=== PATIENT | female | born 1930 | race Hispanic/Latino ===

== ENCOUNTER 2019-05-04 11:14 | Inpatient (IN) | payer MEDICARE ==
--- NOTE | 2019-05-04 12:18 | Emergency Department Report ---
Blank Doc - Documentation Documentation: 89-year-old female that was sent by PCP for left leg pain and swelling. This initial assessment/diagnostic orders/clinical plan/treatment(s) is/are subject to change based on patient's health status, clinical progression and re- assessment by fellow clinical providers in the ED. Further treatment and workup at subsequent clinical providers discretion. Patient/guardians urged not to elope from the ED as their condition may be serious if not clinically assessed and managed. Initial orders include: 1- Patient sent to MAIN ED for further evaluation and treatment 2- labs 3- US doppler
[2019-05-04 14:04] LABS: Basophils # (Auto) 0.1 K/mm3 (0.0-0.1); Basophils % (Auto) 0.7 % (0.0-1.8); Eosinophils % (Auto) 0.5 % (0.0-4.3); Hemoglobin 13.6 gm/dl (10.1-14.3); Lymphocytes # (Auto) 1.1 K/mm3 (1.2-5.4); Lymphocytes % (Auto) 11.7 % (13.4-35.0); Mean Corpuscular HGB Conc 33 % (30-34); Mean Corpuscular Volume 94 fl (79-97); Monocytes # (Auto) 0.9 K/mm3 (0.0-0.8); Monocytes % (Auto) 9.5 % (0.0-7.3); Platelet Count 168 K/mm3 (140-440); Red Blood Count 4.35 M/mm3 (3.65-5.03); Red Cell Distribution Width 14.8 % (13.2-15.2)
--- NOTE | 2019-05-04 14:11 | Vascular Lab Report ---
DUPLEX DOPPLER LOWER EXTREMITY VEINS, left INDICATION: left leg pain and swelling. TECHNIQUE: Duplex doppler imaging was performed through the veins of the left lower extremity using venous compr ession and other maneuvers. COMPARISON: No relevant prior imaging study available. FINDINGS: Left Common femoral vein: Occlusive thrombus. Left Superficial femoral vein: Occlusive thrombus throughout all segments. Left Popliteal vein: Occlusive thrombus. Left Calf veins: Occlusive thrombus. Additional findings: There is also extensive thrombus throughout the great saphenous vein. IMPRESSION: 1. Positive for DVT in the left lower extremity as above. Findings were given to Caesar Ross nurse practitioner at 1344 by the raw sampler. Signer Name: Johnny Berg MD Signed: 05/04/2019 2:07 PM Workstation Name: [id number]
--- NOTE | 2019-05-04 14:26 | Emergency Department Report ---
HPI - General Chief Complaint: Extremity Problem,Nontraumatic Time Seen by Provider: 05/04/19 12:16 - HPI HPI: 89-year-old female presents to the emergency department with complaint of a one-week history of progressively worsening left lower extremity swelling. She will occasionally have some twinges of pain in the calf but otherwise she denies any current his comfort. She originally saw her PCP and tried some compression stockings and keeping it elevated but it continued to worsen. She was sent in by the PCP, Dr. Lobo Escobar, for further evaluation. She denies any chest pain. When asked if she has any shortness of breath she says "I always have some shortness of breath." History of hypertension. She denies any recent fall or injury, recent surgery or immobility, or any long car or plane ride or travel. She herself does not have any history of PE or DVT but apparently her father " from one (a PE) on the operating table. ED Past Medical Hx - Past Medical History Previous Medical History?: Yes Hx Hypertension: Yes (2002) Hx Heart Attack/AMI: No Hx Congestive Heart Failure: No Hx Diabetes: No Hx Deep Vein Thrombosis: No Hx Pulmonary Embolism: No Hx GERD: No Hx Liver Disease: No Hx Renal Disease: No Hx Sickle Cell Disease: No Hx Arthritis: No Hx Headaches / Migraines: No Hx Seizures: No Hx Kidney Stones: No Hx Asthma: No Hx COPD: (mild ) Hx Tuberculosis: No Hx Dementia: No Hx HIV: No - Surgical History Past Surgical History?: Yes Hx Coronary Stent: No Hx Open Heart Surgery: No Hx Pacemaker: No Hx Internal Defibrillator: No Hx Cholecystectomy: No Hx Appendectomy: Yes () Hx Breast Surgery: No Additional Surgical History: fistualectomy; hysterectomy - Social History Smoking Status: Never Smoker Substance Use Type: None - Medications Home Medications: Home Medications Medication Instructions Recorded Confirmed Last Taken Type Bimatoprost [Lumigan 0.01%] 1 drop OU QHS 06/16/13 10/06/15 06/23/14 History Losartan Potassium 100 mg PO DAILY 06/16/13 10/06/15 06/23/14 History Simvastatin 1 tab PO DAILY 06/16/13 10/06/15 06/22/14 History Timolol Maleate [Timolol Maleate 1 drop OU BID 06/16/13 10/06/15 06/23/14 History 0.25%] Polyethylene Glycol 3350 [Miralax 17 gm PO QDAY PRN #7 powd.pack 10/08/15 Unknown Rx 3350] Tiotropium [Spiriva] 1 puff IH Q24HRT #30 cap 10/08/15 Unknown Rx levoFLOXacin [Levaquin TAB] 500 mg PO Q24HR #7 tablet 10/08/15 Unknown Rx metroNIDAZOLE [Flagyl TAB] 500 mg PO Q8HR #21 tablet 10/08/15 Unknown Rx ED Review of Systems ROS: Stated complaint: LFT LEG SWELLING/PAIN Other details as noted in HPI Comment: All other systems reviewed and negative Constitutional: denies: chills, fever Eyes: denies: eye pain, vision change ENT: denies: ear pain, throat pain Respiratory: shortness of breath (chronic). denies: cough Cardiovascular: edema (LLE). denies: chest pain Gastrointestinal: denies: abdominal pain, vomiting Genitourinary: denies: dysuria, discharge Musculoskeletal: joint swelling, myalgia. denies: back pain Skin: denies: rash Neurological: denies: headache, weakness Physical Exam - Physical Exam Vital Signs: Vital Signs 05/04/19 05/04/19 11:18 14:03 Temperature 97.4 F L 97.7 F Pulse Rate 97 H 80 Respiratory 16 16 Rate Blood Pressure 131/68 Blood Pressure 140/58 [Right] O2 Sat by Pulse 98 97 Oximetry Physical Exam: GENERAL: The patient is well-developed well-nourished. HEENT: Normocephalic. Atraumatic. Patient has moist mucous membranes. EYES: Extraocular motions are intact. NECK: Supple. Trachea is midline. CHEST/LUNGS: Clear to auscultation. There is no respiratory distress noted. HEART/CARDIOVASCULAR: Regular. There is no tachycardia. There is no murmur. ABDOMEN: Abdomen is soft, nontender. Patient has normal bowel sounds. There is no abdominal distention. SKIN: There is 4+ pitting edema to the left lower extremity, as well as a purplish hue of the skin. NEURO: The patient is awake, alert, and oriented. The patient is cooperative. The patient has no focal neurologic deficits. Normal speech. MUSCULOSKELETAL: There is no tenderness or deformity. There is no limitation range of motion. Unable to palpate left dorsalis pedis pulse secondary to edema. Cap refill less than 2 seconds. ED Course Vital Signs 05/04/19 05/04/19 11:18 14:03 Temperature 97.4 F L 97.7 F Pulse Rate 97 H 80 Respiratory 16 16 Rate Blood Pressure 131/68 Blood Pressure 140/58 [Right] O2 Sat by Pulse 98 97 Oximetry ED Medical Decision Making - Lab Data Result diagrams: 05/04/19 12:48 05/04/19 12:48 - Radiology Data Radiology results: report reviewed DUPLEX DOPPLER LOWER EXTREMITY VEINS, left INDICATION: left leg pain and swelling. TECHNIQUE: Duplex doppler imaging was performed through the veins of the left lower extremity using venous compression and other maneuvers. COMPARISON: No relevant prior imaging study available. FINDINGS: Left Common femoral vein: Occlusive thrombus. Left Superficial femoral vein: Occlusive thrombus throughout all segments. Left Popliteal vein: Occlusive thrombus. Left Calf veins: Occlusive thrombus. Additional findings: There is also extensive thrombus throughout the great saphenous vein. IMPRESSION: 1. Positive for DVT in the left lower extremity as above. Findings were given to Caesar Ross nurse practitioner at 1344 by the solar sales energy advisor. V/Q Scan HISTORY: SOB, DVT. TECHNIQUE: Patient was given 5.3 mCi of technetium MAA and 16.5 mCi of xenon- 133. COMPARISON: None FINDINGS: No significant mismatch between ventilation and perfusion imaging. IMPRESSION: Low probability for PTE. - Medical Decision Making This patient presents with a one-week history of progressive worsening left lowe r extremity swelling as well as some intermittent discomfort. A left leg venous Doppler ultrasound came back positive for an extensive DVT. Patient says that she has some chronic shortness of breath so with the finding of the DVT the patient had a ventilation perfusion scan done that was low probability for a PE. Labs are mostly unremarkable except for some mild renal insufficiency. The patient was seen in the emergency department by the vascular surgeon on-call, Dr. Blackman. She will be placed on heparin but does not appear to be a candidate for any immediate thrombolysis or thrombectomy. Patient will be admitted to the hospital for further evaluation and was accepted for admission by the hospitalist, Dr. Viveros. - Differential Diagnosis DVT, PE, cellulitis, venous stasis, CHF Critical care time in (mins) excluding proc time.: 31 Critical care attestation.: If time is entered above; I have spent that time in minutes in the direct care of this critically ill patient, excluding procedure time. Critical care time was spent on this patient and doing her initial evaluation, multiple re- evaluations, ordering and interpretation of labs and imaging, discussion with the vascular surgeon and hospitalist, initiation of anticoagulation. Failure to evaluate and treat this patient's DVT could otherwise lead to increased blood clot, pulmonary embolism, increased swelling causing limb ischemia/necrosis, among other possibilities. Critical Care Time: 31 minutes ED Disposition Clinical Impression: Mild renal insufficiency Deep vein thrombosis of left lower extremity Qualifiers: Affected thrombotic vein of extremity: unspecified vein of extremity Chronicity: acute Qualified Code(s): I82.402 - Acute embolism and thrombosis of unspecified deep veins of left lower extremity Disposition: -09 OP ADMIT IP TO THIS HOSP Is pt being admited?: Yes Condition: Serious Time of Disposition: 19:50
[2019-05-04 14:28] LABS: Albumin 4.5 g/dL (3.9-5)
--- NOTE | 2019-05-04 15:02 | Consultation ---
History of Present Illness - Reason for Consult Consult date: 05/04/19 DVT - History of Present Illness 89-year-old female presents to the emergency department with complaint of a one-week history of progressively worsening left lower extremity swelling. She will occasionally have some twinges of pain in the calf but otherwise she denies any current his comfort. She originally saw her PCP and tried some compression stockings and keeping it elevated but it continued to worsen. She was sent in by the PCP, Dr. Lobo Escobar, for further evaluation. She denies any chest pain. When asked if she has any shortness of breath she says "I always have some shortness of breath." History of hypertension. She denies any recent fall or injury, recent surgery or immobility, or any long car or plane ride or travel. She herself does not have any history of PE or DVT but apparently her father " from one (a PE) on the operating table. ED Past Medical Hx - Past Medical History Previous Medical History?: Yes Hx Hypertension: Yes (2002) Hx Heart Attack/AMI: No Hx Congestive Heart Failure: No Hx Diabetes: No Hx Deep Vein Thrombosis: No Hx Pulmonary Embolism: No Hx GERD: No Hx Liver Disease: No Hx Renal Disease: No Hx Sickle Cell Disease: No Hx Arthritis: No Hx Headaches / Migraines: No Hx Seizures: No Hx Kidney Stones: No Hx Asthma: No Hx COPD: (mild ) Hx Tuberculosis: No Hx Dementia: No Hx HIV: No - Surgical History Past Surgical History?: Yes Hx Coronary Stent: No Hx Open Heart Surgery: No Hx Pacemaker: No Hx Internal Defibrillator: No Hx Cholecystectomy: No Hx Appendectomy: Yes () Hx Breast Surgery: No Additional Surgical History: fistualectomy; hysterectomy - Social History Smoking Status: Never Smoker Substance Use Type: None Medications and Allergies Allergies Allergy/AdvReac Type Severity Reaction Status Date / Time morphine AdvReac NAUSEA;HEAD Verified 06/18/13 07:35 ACHE;RASH Home Medications Medication Instructions Recorded Confirmed Last Taken Type Bimatoprost [Lumigan 0.01%] 1 drop OU QHS 06/16/13 10/06/15 06/23/14 History Losartan Potassium 100 mg PO DAILY 06/16/13 10/06/15 06/23/14 History Simvastatin 1 tab PO DAILY 06/16/13 10/06/15 06/22/14 History Timolol Maleate [Timolol Maleate 1 drop OU BID 06/16/13 10/06/15 06/23/14 History 0.25%] Polyethylene Glycol 3350 [Miralax 17 gm PO QDAY PRN #7 powd.pack 10/08/15 Unknown Rx 3350] Tiotropium [Spiriva] 1 puff IH Q24HRT #30 cap 10/08/15 Unknown Rx levoFLOXacin [Levaquin TAB] 500 mg PO Q24HR #7 tablet 10/08/15 Unknown Rx metroNIDAZOLE [Flagyl TAB] 500 mg PO Q8HR #21 tablet 10/08/15 Unknown Rx Review of Systems All systems: negative (see HPI) Exam - Constitutional Vitals: Temp Pulse Resp BP Pulse Ox 97.7 F 80 16 140/58 97 05/04/19 14:03 05/04/19 14:03 05/04/19 14:03 05/04/19 14:03 05/04/19 14:03 General appearance: Present: no acute distress - EENT Eyes: Present: EOM intact ENT: hearing intact - Respiratory Respiratory effort: normal - Extremities Extremities: abnormal (right lower extremity palpable pedal pulses, left lower extremity nonpalpable pedal pulses, 4+ edema, reddish venous rubor, but no pain, and full motor and sensory function) - Abdominal General gastrointestinal: Present: soft, non-tender - Psychiatric Psychiatric: appropriate mood/affect, cooperative Results - Labs CBC & Chem 7: 05/04/19 12:48 05/04/19 12:48 Labs: Abnormal lab results 05/04/19 05/04/19 Range/Units 12:48 12:48 Lymph % (Auto) 11.7 L (13.4-35.0) % [place] % (Auto) 9.5 H (0.0-7.3) % Lymph # 1.1 L (1.2-5.4) K/mm3 [place] # 0.9 H (0.0-0.8) K/mm3 Seg Neutrophils % 77.6 H (40.0-70.0) % Potassium 5.4 H (3.6-5.0) mmol/L BUN 18 H (7-17) mg/dL - Imaging and Cardiology Venous US: report reviewed, image reviewed Assessment and Plan 89-year-old female who presents with 2 week history of left lower extremity swelling. She initially saw her primary care physician who had an ultrasound performed but this was negative. She then tried to elevate the leg and wear compression hose but this did not improve her symptoms. She presented after the swelling had worsened and had a DVT study which demonstrated extensive left lower extremity deep and superficial venous thrombus. Although the patient has 4+ swelling with reddish discoloration, she has full motor and sensory function of the left lower extremity without pain. She had an event 2 months ago which may represent a possible stroke and since then she has had some word finding difficulties. Although typically such extensive thrombus would be addressed with thrombolytic therapy and subsequent mechanical thrombectomy, given patient's advanced age (89) and history of possible CVA 2 months ago, she is a poor thrombolysis candidate. She has full motor, and sensory function of the left lower extremity. Her right pedal pulses are palpable, but her left pedal pulses are nonpalpable but this may be due to the swelling. The patient has some concerning signs of phlegmasia with 4+ edema and reddish discoloration of the limb with nonpalpable pulses, but is quite elderly, and has full motor and sensory function. Recommend heparin anticoagulation and will reassess patient tomorrow. NPO after MN except sips of water with meds until time of reassessment.
[2019-05-04] MEDS ORDERED: HEPARIN 10,000 UNITS/10 ML VIAL IV ONE (15:24)
--- NOTE | 2019-05-04 15:54 | Nuclear Medicine Report ---
V/Q Scan HISTORY: SOB, DVT. TECHNIQUE: Patient was given 5.3 mCi of technetium MAA and 16.5 mCi of xenon-133. COMPARISON: None FINDINGS: No significant mismatch between ventilation and perfusion imaging. IMPRESSION: Low probability for PTE. Signer Name: Johnny Berg MD Signed: 05/04/2019 3:49 PM Workstation Name: [id number]
--- NOTE | 2019-05-04 15:57 | History and Physical Report ---
History of Present Illness Chief complaint: My leg hurts History of present illness: 89-year-old female with HTN presents to ED for evaluation. Patient states that she has experienced left lower extremity pain over the past 1 week with persistent symptoms over this at the same timeframe. Patient states that she has twinges of pain in her left calf which have been persistent over the past week. Patient was seen and evaluated by her primary care physician and instructed to seek further care at [facility]. Patient transported to [facility] via private vehicle. Patient seen and evaluated in the emergency department. Patient underwent left lower extremity duplex and found to have extensive DVT in the left lower extremity. Patient placed in observation status and admitted to [facility] unit for medical stabilization due to increased risk of decompensation.. Interventional radiology consulted. Patient initiated on heparin drip. Patient denies fever, chills, chest pain, palpitations, hemoptysis, bright red blood per rectum, prolonged travel/immobility, individual/family of DVT/PE/bleeding/blood clotting disorders, skin rash, recent ill contacts. No prior admission for review. All medication listed at time of admission have been reconciled. Advanced care planning conducted in ED. Past History Past Medical History: hypertension Past Surgical History: appendectomy, hysterectomy Social history: . denies: smoking, alcohol abuse, prescription drug abuse Family history: hypertension Medications and Allergies Allergies Allergy/AdvReac Type Severity Reaction Status Date / Time morphine AdvReac NAUSEA;HEAD Verified 06/18/13 07:35 ACHE;RASH Home Medications Medication Instructions Recorded Confirmed Last Taken Type Bimatoprost [Lumigan 0.01%] 1 drop OU QHS 06/16/13 10/06/15 06/23/14 History Losartan Potassium 100 mg PO DAILY 06/16/13 10/06/15 06/23/14 History Simvastatin 1 tab PO DAILY 06/16/13 10/06/15 06/22/14 History Timolol Maleate [Timolol Maleate 1 drop OU BID 06/16/13 10/06/15 06/23/14 History 0.25%] Polyethylene Glycol 3350 [Miralax 17 gm PO QDAY PRN #7 powd.pack 10/08/15 Unknown Rx 3350] Tiotropium [Spiriva] 1 puff IH Q24HRT #30 cap 10/08/15 Unknown Rx levoFLOXacin [Levaquin TAB] 500 mg PO Q24HR #7 tablet 10/08/15 Unknown Rx metroNIDAZOLE [Flagyl TAB] 500 mg PO Q8HR #21 tablet 10/08/15 Unknown Rx Active Meds: Active Medications Heparin Sodium/Sodium Chloride (Heparin/ 0.45% Nacl-25,000 Unit/500 Ml) 25,000 unit in 500 mls @ 20 mls/hr IV TITR ELIZ; Protocol Review of Systems Constitutional: other (Left left calf pain), no weight loss, no weight gain, no fever, no sweats Ears, nose, mouth and throat: no ear pain, no ear discharge, no tinnitis, no n ose pain, no nasal congestion, no nasal discharge Breasts: no change in shape, no swelling, no mass Cardiovascular: no chest pain, no orthopnea, no rapid/irregular heart beat, no edema, no syncope Respiratory: no cough, no excessive sputum, no hemoptysis, no shortness of breath Gastrointestinal: no nausea, no vomiting, no diarrhea, no constipation Genitourinary Female: no pelvic pain, no flank pain, no menorrhagia, no dysuria, no urinary frequency, no urgency Rectal: no pain, no incontinence, no bleeding Musculoskeletal: no neck stiffness, no neck pain, no shooting arm pain, no arm numbness/tingling, no shooting leg pain, no redness of joints Integumentary: no rash, no pruritis, no redness, no wounds, no jaundice, no boils, no blisters Neurological: no transient paralysis, no paralysis, no weakness, no parathesias, no numbness, no tingling, no seizures Psychiatric: no anxiety, no memory loss, no change in sleep habits, no sleep disturbances, no insomnia, no hypersomnia Endocrine: no cold intolerance, no heat intolerance, no polyphagia, no excessive thirst, no polydipsia, no nocturia, no excessive sweating, no flushing Hematologic/Lymphatic: no easy bruising, no easy bleeding, no lymphadenopathy, no lymphedema Allergic/Immunologic: no urticaria, no allergic rhinitis, no wheezing, no persistent infections, no anaphylaxis Exam - Constitutional Vitals: Temp Pulse Resp BP Pulse Ox 97.7 F 80 16 140/58 97 05/04/19 14:03 05/04/19 14:03 05/04/19 14:03 05/04/19 14:03 05/04/19 14:03 General appearance: Present: mild distress - EENT Eyes: Present: PERRL ENT: hearing intact, clear oral mucosa - Neck Neck: Present: supple, normal ROM - Respiratory Respiratory effort: normal Respiratory: bilateral: CTA - Cardiovascular Heart Sounds: Present: S1 & S2. Absent: rub, click - Extremities Extremities: pulses symmetrical Extremity abnormal: edema, erythema Peripheral Pulses: within normal limits - Abdominal General gastrointestinal: Present: soft, non-tender, non-distended, normal bowel sounds Female genitourinary: Present: normal - Integumentary Integumentary: Present: clear, warm, dry - Musculoskeletal Musculoskeletal: gait normal, strength equal bilaterally - Psychiatric Psychiatric: appropriate mood/affect, intact judgment & insight - Neurologic Neurologic: CNII-XII intact, moves all extremities Results - Labs CBC & Chem 7: 05/04/19 12:48 05/04/19 12:48 Labs: Abnormal lab results 05/04/19 05/04/19 Range/Units 12:48 12:48 Lymph % (Auto) 11.7 L (13.4-35.0) % [place] % (Auto) 9.5 H (0.0-7.3) % Lymph # 1.1 L (1.2-5.4) K/mm3 [place] # 0.9 H (0.0-0.8) K/mm3 Seg Neutrophils % 77.6 H (40.0-70.0) % Potassium 5.4 H (3.6-5.0) mmol/L BUN 18 H (7-17) mg/dL Assessment and Plan - Patient Problems (1) Deep vein thrombosis of left lower extremity Current Visit: Yes Status: Acute Qualifiers: Affected thrombotic vein of extremity: unspecified vein of extremity Chronicity: acute Qualified Code(s): I82.402 - Acute embolism and thrombosis of unspecified deep veins of left lower extremity Plan to address problem: Interventional radiology consulted, therapeutic anticoagulation, supportive care, left lower extremity elevation while in bed (2) Hypertension Current Visit: Yes Status: Acute Qualifiers: Hypertension type: essential hypertension Qualified Code(s): I10 - Essential (primary) hypertension Plan to address problem: Monitor blood pressure every shift, continue medical management. (3) Advance care planning Current Visit: Yes Status: Acute Plan to address problem: Disease education conducted, patient is full code, patient knowledge understanding and agreement with care plan. +30 minutes (4) DVT prophylaxis Current Visit: Yes Status: Acute Plan to address problem: SCD to bilateral lower extremities while in bed, therapeutic anticoagulation.
[2019-05-04] MEDS ORDERED: HEPARIN/ 0.45% NACL DRIP 25,000 UNIT/500 ML BAG IV SCH (16:00)
[2019-05-04] MEDS ORDERED: ONDANSETRON 4 MG/2 ML INJ IV PRN (16:03)
[2019-05-04] MEDS ORDERED: ACETAMINOPHEN 325 MG TAB PO PRN (16:03)
[2019-05-04] MEDS ORDERED: HYDROmorphone 1 MG/1 ML INJ IV PRN (16:03)
[2019-05-04] MEDS ORDERED: ALBUTEROL 2.5 MG/3 ML NEBU IH PRN (16:03)
[2019-05-04] MEDS ORDERED: POLYETHYLENE GLYCOL 3350 17 GM POWDER PO PRN (16:05)
[2019-05-04 16:09] LABS: INR 0.9 (0.87-1.13)
[2019-05-04 16:10] LABS: Partial Thromboplastin Time 34.9 Sec. (24.2-36.6)
[2019-05-04] MEDS: PRAVASTATIN 80 MG TAB PO SCH (21:59)
[2019-05-04] MEDS ORDERED: TIMOLOL MALEATE OU SCH (22:00)
[2019-05-04] MEDS ORDERED: NON-FORMULARY EACH (Bimatoprost [Lumigan 0.01%] 1 DROP) OU SCH (22:00)
[2019-05-04] MEDS: LATANOPROST 0.005% OPHTH SOLN 2.5 ML OU SCH (22:18)
[2019-05-04 23:08] LABS: Bilirubin,Urine NEG (Negative); Blood,Urine NEG (Negative); Color,Urine Amber (Yellow); Hyaline Casts,Urine 1 /LPF; Mucus,Urine 2+ /HPF; Protein,Urine <15 mg/dL mg/dL (Negative); Urobilinogen,Urine < 2.0 mg/dL (<2.0)
[2019-05-05 06:17] LABS: Basophils # (Auto) 0.1 K/mm3 (0.0-0.1); Eosinophils # (Auto) 0.1 K/mm3 (0.0-0.4); Eosinophils % (Auto) 1.7 % (0.0-4.3); Hematocrit 35.9 % (30.3-42.9); Lymphocytes # (Auto) 1.4 K/mm3 (1.2-5.4); Lymphocytes % (Auto) 21.8 % (13.4-35.0); Mean Corpuscular HGB Conc 33 % (30-34); Mean Corpuscular Volume 94 fl (79-97); Monocytes # (Auto) 0.9 K/mm3 (0.0-0.8); Monocytes % (Auto) 13.6 % (0.0-7.3); Platelet Count 144 K/mm3 (140-440); Red Blood Count 3.82 M/mm3 (3.65-5.03); Red Cell Distribution Width 14.4 % (13.2-15.2)
[2019-05-05 09:05] LABS: Calcium 8.8 mg/dL (8.4-10.2)
[2019-05-05] MEDS: TIOTROPIUM 18 MCG CAP INHALATION IH SCH (09:15)
[2019-05-05] MEDS ORDERED: NON-FORMULARY EACH (Losartan Potassium [Losartan Potassium] 100 MG) PO SCH (10:00)
[2019-05-05] MEDS ORDERED: SIMVASTATIN PO SCH (10:00)
[2019-05-05] MEDS: LOSARTAN 50 MG TAB PO SCH (10:26)
[2019-05-05] MEDS ORDERED: ENOXAPARIN 100 MG/1 ML INJ SUB-Q SCH (13:00)
--- NOTE | 2019-05-05 13:15 | Progress Note ---
Assessment and Plan 89-year-old female with extensive left lower extremity DVT for 2 weeks. She had an event 2 months ago which may represent a possible stroke and since then she has had some word finding difficulties. 4+ left lower extremity swelling with rubor discoloration. No pain. Full motor and sensory function. Due to advanced age, will attempt to manage with medical management. Switching to Lovenox. Will reassess over the next few days. If there is no decline, then will continue medical management. If decline, Clottriever thrombectomy. Subjective Date of service: 05/05/19 Interval history: Swollen, 4+ edema. Palpable right pedal pulses, nonpalpable pedal pulses. No pain. Left lower extremity painless rubor was noted. Full motor function and sensory function. Objective - Constitutional Vitals: Vital Signs - 12hr 05/05/19 05/05/19 05/05/19 02:20 02:41 03:07 Temperature 98.3 F Pulse Rate 78 Respiratory 18 20 Rate Blood Pressure 94/46 O2 Sat by Pulse 94 Oximetry 05/05/19 05/05/19 05/05/19 07:27 07:55 10:00 Temperature 98.6 F Pulse Rate 92 H Respiratory 18 20 Rate Blood Pressure 107/50 O2 Sat by Pulse 92 94 Oximetry 05/05/19 10:26 Temperature Pulse Rate 92 H Respiratory Rate Blood Pressure 107/50 O2 Sat by Pulse Oximetry General appearance: Present: no acute distress - EENT Eyes: EOM intact ENT: hearing intact - Respiratory Respiratory effort: normal Extremities: abnormal (see subjective) - Gastrointestinal General gastrointestinal: Present: soft, non-tender - Psychiatric Psychiatric: appropriate mood/affect, cooperative - Labs CBC & Chem 7: 05/05/19 05:52 05/05/19 08:32 Labs: Abnormal lab results 05/04/19 05/04/19 05/04/19 Range/Units 12:48 12:48 22:19 Lymph % (Auto) 11.7 L (13.4-35.0) % [place] % (Auto) 9.5 H (0.0-7.3) % Lymph # 1.1 L (1.2-5.4) K/mm3 [place] # 0.9 H (0.0-0.8) K/mm3 Seg Neutrophils % 77.6 H (40.0-70.0) % Heparin Anti-Xa Level (0.3-0.7) U.I./ml Potassium 5.4 H (3.6-5.0) mmol/L Carbon Dioxide (22-30) mmol/L BUN 18 H (7-17) mg/dL Urine WBC (Auto) 7.0 H (0.0-6.0) /HPF 05/04/19 05/05/19 05/05/19 Range/Units 22:49 05:52 08:32 Lymph % (Auto) (13.4-35.0) % [place] % (Auto) 13.6 H (0.0-7.3) % Lymph # (1.2-5.4) K/mm3 [place] # 0.9 H (0.0-0.8) K/mm3 Seg Neutrophils % (40.0-70.0) % Heparin Anti-Xa Level 0.86 H (0.3-0.7) U.I./ml Potassium (3.6-5.0) mmol/L Carbon Dioxide 21 L (22-30) mmol/L BUN 20 H (7-17) mg/dL Urine WBC (Auto) (0.0-6.0) /HPF Medications & Allergies - Medications Allergies/Adverse Reactions: Allergies morphine Adverse Reaction (Verified 06/18/13 07:35) NAUSEA;HEADACHE;RASH Home Medications: Home Medications Medication Instructions Recorded Confirmed Last Taken Type Bimatoprost [Lumigan 0.01%] 1 drop OU QHS 06/16/13 05/05/19 06/23/14 History Losartan Potassium 100 mg PO DAILY 06/16/13 05/05/19 06/23/14 History Simvastatin 1 tab PO DAILY 06/16/13 05/05/19 06/22/14 History Timolol Maleate [Timolol Maleate 1 drop OU BID 06/16/13 05/05/19 06/23/14 History 0.25%] Polyethylene Glycol 3350 [Miralax 17 gm PO QDAY PRN #7 powd.pack 10/08/15 05/05/19 Unknown Rx 3350] Tiotropium [Spiriva] 1 puff IH Q24HRT #30 cap 10/08/15 05/05/19 Unknown Rx levoFLOXacin [Levaquin TAB] 500 mg PO Q24HR #7 tablet 10/08/15 05/05/19 Unknown Rx metroNIDAZOLE [Flagyl TAB] 500 mg PO Q8HR #21 tablet 10/08/15 05/05/19 Unknown Rx Mirtazapine 15 mg PO Q48HR 05/05/19 05/05/19 Unknown History Active Medications: Generic Name Dose Route Start Last Admin Trade Name Freq PRN Reason Stop Dose Admin Acetaminophen 650 mg 05/04/19 16:03 Tylenol PO Q4H PRN Pain MILD(1-3)/Fever >100.5/EWI Albuterol 2.5 mg 05/04/19 16:03 Proventil IH Q4HRT PRN Shortness Of Breath Enoxaparin Sodium 70 mg 05/05/19 13:00 Enoxaparin SUB-Q Q12HR [facility] Hydromorphone HCl 0.25 mg 05/04/19 16:03 Dilaudid IV Q3H PRN Pain, Moderate (4-6) Latanoprost 1 drops 05/04/19 22:00 05/04/19 22:18 Latanoprost 0.005% OU Not Given QHS [facility] Losartan Potassium 100 mg 05/05/19 10:00 05/05/19 10:26 Cozaar PO Not Given QDAY [facility] Miscellaneous Medication 1 drop 05/04/19 22:00 Timolol Maleate [Timolol Maleate 0.25%] OU BID [facility] Ondansetron HCl 4 mg 05/04/19 16:03 Zofran IV Q8H PRN Nausea And Vomiting Polyethylene Glycol 17 gm 05/04/19 16:05 Miralax 3350 PO QDAY PRN Constipation Pravastatin Sodium 80 mg 05/04/19 22:00 05/04/19 21:59 Pravachol PO 80 mg QHS [facility] Administration Sodium Chloride 10 ml 05/04/19 22:00 05/05/19 10:28 Sodium Chloride Flush Syringe 10 Ml IV 10 ml BID ELIZ Administration Sodium Chloride 10 ml 05/04/19 16:03 Sodium Chloride Flush Syringe 10 Ml IV PRN PRN LINE FLUSH Tiotropium [place] 1 puff 05/05/19 09:00 Spiriva IH Q24HRT ELIZ
[2019-05-05] MEDS: ENOXAPARIN 80 MG/0.8 ML INJ SUB-Q SCH ×2 (15:46→22:44)
--- NOTE | 2019-05-05 20:34 | Progress Note ---
Assessment and Plan Assessment and plan: Patient is a 89-year-old [place] woman with a history of hypertension who presents to [facility] with left leg swollen and pain. Patient underwent left lower extremity duplex and found to have extensive DVT in the left lower extremity. Patient initiated on heparin drip and Vascular/IR physician wanted to initiate anticoagulation inpatient due to the extensive nature of the DVT, in multiple large veins and possibly needing Clottriever thrombectomy. Patient denies cancer, and states she is up to date with screen, she denies prolonged travel/immobility. There is no individual/family of DVT/PE/bleeding/blood clotting disorders. * Left leg DVT FINDINGS: Left Common femoral vein: Occlusive thrombus. Left Superficial femoral vein: Occlusive thrombus throughout all segments. Left Popliteal vein: Occlusive thrombus. Left Calf veins: Occlusive thrombus. Additional findings: There is also extensive thrombus throughout the great saphenous vein. IMPRESSION: 1. Positive for DVT in the left lower extremity as above. Findings were given to Caesar Ross nurse practitioner at 1344 by the pier runner. * V/Q scan IMPRESSION: Low probability for PTE. Acute LLE DVT: treat with sq lovenox and plan to discharge on Eliquis Hypertension: low salt diet DVT ppx: therapeutic Lovenox History Interval history: Patient was seen and examined. Follow-up on current diagnosis of Left leg DVT. Overnight uneventful as no events directly reported to me. Patient denies any c hest pain, shortness breath, nausea/vomiting or severe headaches. Imaging, nursing note, chart, labs and old chart reviewed. Discussed with patient. Daughter Melany at bedside Hospitalist Physical - Physical exam Narrative exam: Gen: WDWN, NAD, Awake, Alert, Orientated HEENT: NCAT, EOMI, PERRL, OP Clear Neck: supple, no adenopathy, no thyromegaly, no JVD CVS/Heart: RRR, normal S1S2, pulses present bilaterally Chest/Lungs: CTA B, Symmetrical chest expansion, good air entry bilaterally GI/Abdomen: soft, NTND, good bowel sounds, no guarding or rebound /Bladder: no suprapubic tenderness, no CVA or paraspinal tenderness Extermity/Skin: 4+ left leg edema from foot to groin, no obvious rash MSK: FROM x 4 Neuro: CN 2-12 grossly intact, no new focal deficits Psych: calm - Constitutional Vitals: Temp Pulse Resp BP Pulse Ox 98.9 F 87 18 121/52 91 05/05/19 15:11 05/05/19 15:11 05/05/19 15:11 05/05/19 15:11 05/05/19 15:11 General appearance: Present: no acute distress Results - Labs CBC & Chem 7: 05/06/19 05:33 05/05/19 08:32 Labs: Laboratory Last Values WBC 6.3 K/mm3 (4.5-11.0) 05/05/19 05:52 RBC 3.82 M/mm3 (3.65-5.03) 05/05/19 05:52 Hgb 12.0 gm/dl (10.1-14.3) 05/05/19 05:52 Hct 35.9 % (30.3-42.9) 05/05/19 05:52 MCV 94 fl (79-97) 05/05/19 05:52 MCH 31 pg (28-32) 05/05/19 05:52 MCHC 33 % (30-34) 05/05/19 05:52 RDW 14.4 % (13.2-15.2) 05/05/19 05:52 Plt Count 144 K/mm3 (140-440) 05/05/19 05:52 Lymph % (Auto) 21.8 % (13.4-35.0) 05/05/19 05:52 [place] % (Auto) 13.6 % (0.0-7.3) H 05/05/19 05:52 Eos % (Auto) 1.7 % (0.0-4.3) 05/05/19 05:52 Baso % (Auto) 1.0 % (0.0-1.8) 05/05/19 05:52 Lymph # 1.4 K/mm3 (1.2-5.4) 05/05/19 05:52 [place] # 0.9 K/mm3 (0.0-0.8) H 05/05/19 05:52 Eos # 0.1 K/mm3 (0.0-0.4) 05/05/19 05:52 Baso # 0.1 K/mm3 (0.0-0.1) 05/05/19 05:52 Seg Neutrophils % 61.9 % (40.0-70.0) 05/05/19 05:52 Seg Neutrophils # 3.9 K/mm3 (1.8-7.7) 05/05/19 05:52 PT 12.2 Sec. (12.2-14.9) 05/04/19 15:38 INR 0.90 (0.87-1.13) 05/04/19 15:38 APTT 34.9 Sec. (24.2-36.6) 05/04/19 15:38 Heparin Anti-Xa Level 0.64 U.I./ml (0.3-0.7) 05/05/19 12:13 Sodium 141 mmol/L (137-145) 05/05/19 08:32 Potassium 4.2 mmol/L (3.6-5.0) D 05/05/19 08:32 Chloride 105.0 mmol/L (98-107) 05/05/19 08:32 Carbon Dioxide 21 mmol/L (22-30) L 05/05/19 08:32 Anion Gap 19 mmol/L 05/05/19 08:32 BUN 20 mg/dL (7-17) H 05/05/19 08:32 Creatinine 0.9 mg/dL (0.7-1.2) 05/05/19 08:32 Estimated GFR 59 ml/min 05/05/19 08:32 BUN/Creatinine Ratio 22 % 05/05/19 08:32 Glucose 98 mg/dL (65-100) 05/05/19 08:32 Calcium 8.8 mg/dL (8.4-10.2) 05/05/19 08:32 Total Bilirubin 0.60 mg/dL (0.1-1.2) 05/04/19 12:48 AST 21 units/L (5-40) 05/04/19 12:48 ALT 16 units/L (7-56) 05/04/19 12:48 Alkaline Phosphatase 123 units/L (35-129) 05/04/19 12:48 NT-Pro-B Natriuret Pep 276.5 pg/mL (0-900) 05/04/19 12:48 Total Protein 7.1 g/dL (6.3-8.2) 05/04/19 12:48 Albumin 4.5 g/dL (3.9-5) 05/04/19 12:48 Albumin/Globulin Ratio 1.7 % 05/04/19 12:48 Urine Color [place] (Yellow) 05/04/19 22:19 Urine Turbidity Slightly-cloudy (Clear) 05/04/19 22:19 Urine pH 5.0 (5.0-7.0) 05/04/19 22:19 Ur Specific [place] 1.021 (1.003-1.030) 05/04/19 22:19 Urine Protein <15 mg/dl mg/dL (Negative) 05/04/19 22:19 Urine Glucose (UA) Neg mg/dL (Negative) 05/04/19 22:19 Urine Ketones Tr mg/dL (Negative) 05/04/19 22:19 Urine Blood Neg (Negative) 05/04/19 22:19 Urine Nitrite Neg (Negative) 05/04/19 22:19 Urine Bilirubin Neg (Negative) 05/04/19 22:19 Urine Urobilinogen < 2.0 mg/dL (<2.0) 05/04/19 22:19 Ur Leukocyte Esterase Sm (Negative) 05/04/19 22:19 Urine WBC (Auto) 7.0 /HPF (0.0-6.0) H 05/04/19 22:19 Urine RBC (Auto) 7.0 /HPF (0.0-6.0) 05/04/19 22:19 U Epithel Cells (Auto) 6.0 /HPF (0-13.0) 05/04/19 22:19 Hyaline Casts 1 /LPF 05/04/19 22:19 Urine Mucus 2+ /HPF 05/04/19 22:19 Active Medications - Current Medications Current Medications: Generic Name Dose Route Start Last Admin Trade Name Freq PRN Reason Stop Dose Admin Acetaminophen 650 mg 05/04/19 16:03 Tylenol PO Q4H PRN Pain MILD(1-3)/Fever >100.5/WEI Albuterol 2.5 mg 05/04/19 16:03 Proventil IH Q4HRT PRN Shortness Of Breath Enoxaparin Sodium 70 mg 05/05/19 13:00 05/05/19 15:46 Enoxaparin SUB-Q 70 mg Q12HR [facility]IZ Administration Hydromorphone HCl 0.25 mg 05/04/19 16:03 Dilaudid IV Q3H PRN Pain, Moderate (4-6) Latanoprost 1 drops 05/04/19 22:00 05/04/19 22:18 Latanoprost 0.005% OU Not Given QHS [facility] Losartan Potassium 100 mg 05/05/19 10:00 05/05/19 10:26 Cozaar PO Not Given QDAY ELIZ Ondansetron HCl 4 mg 05/04/19 16:03 Zofran IV Q8H PRN Nausea And Vomiting Polyethylene Glycol 17 gm 05/04/19 16:05 Miralax 3350 PO QDAY PRN Constipation Pravastatin Sodium 80 mg 05/04/19 22:00 05/04/19 21:59 Pravachol PO 80 mg QHS ELIZ Administration Sodium Chloride 10 ml 05/04/19 22:00 05/05/19 10:28 Sodium Chloride Flush Syringe 10 Ml IV 10 ml BID ELIZ Administration Sodium Chloride 10 ml 05/04/19 16:03 Sodium Chloride Flush Syringe 10 Ml IV PRN PRN LINE FLUSH Timolol Maleate 1 drops 05/05/19 22:00 Timoptic OU BID [facility] Tiotropium [place] 1 puff 05/05/19 09:00 05/05/19 09:15 Spiriva IH Not Given Q24HRT ELIZ
[2019-05-05] MEDS: PRAVASTATIN 80 MG TAB PO SCH (22:43)
[2019-05-05] MEDS: TIMOLOL 0.5% OPHTH SOLN 5 ML OU SCH (22:43)
[2019-05-05] MEDS: LATANOPROST 0.005% OPHTH SOLN 2.5 ML OU SCH (22:44)
[2019-05-06 06:25] LABS: Hematocrit 34.5 % (30.3-42.9); Hemoglobin 11.6 gm/dl (10.1-14.3)
[2019-05-06] MEDS: TIMOLOL 0.5% OPHTH SOLN 5 ML OU SCH ×2 (09:15→21:23)
[2019-05-06] MEDS: ENOXAPARIN 80 MG/0.8 ML INJ SUB-Q SCH ×2 (09:15→21:23)
[2019-05-06] MEDS: LOSARTAN 50 MG TAB PO SCH (10:00)
[2019-05-06] MEDS: TIOTROPIUM 18 MCG CAP INHALATION IH SCH (11:07)
[2019-05-06] MEDS: PRAVASTATIN 80 MG TAB PO SCH (21:24)
[2019-05-06] MEDS: LATANOPROST 0.005% OPHTH SOLN 2.5 ML OU SCH (21:45)
[2019-05-07] MEDS: TIOTROPIUM 18 MCG CAP INHALATION IH SCH (08:13)
--- NOTE | 2019-05-07 08:29 | Progress Note ---
Assessment and Plan Assessment and plan: Patient is a 89-year-old [place] woman with a history of hypertension who presents to [facility] ED with left leg swollen and pain. Patient underwent left lower extremity duplex and found to have extensive DVT in the left lower extremity. Patient initiated on heparin drip and Vascular/IR physician wanted to initiate anticoagulation inpatient due to the extensive nature of the DVT, in multiple large veins and possibly needing Clottriever thrombectomy. Patient denies cancer, and states she is up to date with screen, she denies prolonged travel/immobility. There is no individual/family of DVT/PE/bleeding/blood clotting disorders. * Left leg DVT FINDINGS: Left Common femoral vein: Occlusive thrombus. Left Superficial femoral vein: Occlusive thrombus throughout all segments. Left Popliteal vein: Occlusive thrombus. Left Calf veins: Occlusive thrombus. Additional findings: There is also extensive thrombus throughout the great saphenous vein. IMPRESSION: 1. Positive for DVT in the left lower extremity as above. Findings were given to Caesar Ross nurse practitioner at 1344 by the sales and marketing director. * V/Q scan IMPRESSION: Low probability for PTE. Acute LLE DVT: treat with sq lovenox and plan to discharge on Eliquis Hypertension: low salt diet DVT ppx: therapeutic Lovenox Disposition: continue inpatient care still with significant symptoms and leg swelling, physical therapy to check function then d/c tomorrow on Eliquis if no necrosis seen History Interval history: Patient was seen and examined. Follow-up on current diagnosis of Left leg DVT. Overnight uneventful as no events directly reported to me. Patient denies any chest pain, shortness breath, nausea/vomiting or severe headaches. Imaging, nursing note, chart, labs and old chart reviewed. Discussed with patient. Cayden Mosley at bedside Hospitalist Physical - Physical exam Narrative exam: Gen: WDWN, NAD, Awake, Alert, Orientated x 3 HEENT: NCAT, EOMI, PERRL, OP Clear Neck: supple, no adenopathy, no thyromegaly, no JVD CVS/Heart: RRR, normal S1S2, pulses present bilaterally Chest/Lungs: CTA B, Symmetrical chest expansion, good air entry bilaterally GI/Abdomen: soft, NTND, good bowel sounds, no guarding or rebound /Bladder: no suprapubic tenderness, no CVA or paraspinal tenderness Extermity/Skin: 3+ left leg edema from foot to groin, no obvious rash, still rubor color no necrosis seen, KANA hoses on MSK: FROM x 4 Neuro: CN 2-12 grossly intact, no new focal deficits Psych: calm - Constitutional Vitals: Temp Pulse Resp BP Pulse Ox 97.8 F 84 18 129/55 92 05/07/19 07:23 05/07/19 07:23 05/07/19 07:23 05/07/19 07:23 05/07/19 07:23 General appearance: Present: no acute distress Results - Labs CBC & Chem 7: 05/06/19 05:33 05/05/19 08:32 Labs: Laboratory Last Values WBC 6.3 K/mm3 (4.5-11.0) 05/05/19 05:52 RBC 3.82 M/mm3 (3.65-5.03) 05/05/19 05:52 Hgb 11.6 gm/dl (10.1-14.3) 05/06/19 05:33 Hct 34.5 % (30.3-42.9) 05/06/19 05:33 MCV 94 fl (79-97) 05/05/19 05:52 MCH 31 pg (28-32) 05/05/19 05:52 MCHC 33 % (30-34) 05/05/19 05:52 RDW 14.4 % (13.2-15.2) 05/05/19 05:52 Plt Count 148 K/mm3 (140-440) 05/06/19 05:33 Lymph % (Auto) 21.8 % (13.4-35.0) 05/05/19 05:52 [place] % (Auto) 13.6 % (0.0-7.3) H 05/05/19 05:52 Eos % (Auto) 1.7 % (0.0-4.3) 05/05/19 05:52 Baso % (Auto) 1.0 % (0.0-1.8) 05/05/19 05:52 Lymph # 1.4 K/mm3 (1.2-5.4) 05/05/19 05:52 [place] # 0.9 K/mm3 (0.0-0.8) H 05/05/19 05:52 Eos # 0.1 K/mm3 (0.0-0.4) 05/05/19 05:52 Baso # 0.1 K/mm3 (0.0-0.1) 05/05/19 05:52 Seg Neutrophils % 61.9 % (40.0-70.0) 05/05/19 05:52 Seg Neutrophils # 3.9 K/mm3 (1.8-7.7) 05/05/19 05:52 PT 12.2 Sec. (12.2-14.9) 05/04/19 15:38 INR 0.90 (0.87-1.13) 05/04/19 15:38 APTT 34.9 Sec. (24.2-36.6) 05/04/19 15:38 Heparin Anti-Xa Level 0.64 U.I./ml (0.3-0.7) 05/05/19 12:13 Sodium 141 mmol/L (137-145) 05/05/19 08:32 Potassium 4.2 mmol/L (3.6-5.0) D 05/05/19 08:32 Chloride 105.0 mmol/L (98-107) 05/05/19 08:32 Carbon Dioxide 21 mmol/L (22-30) L 05/05/19 08:32 Anion Gap 19 mmol/L 05/05/19 08:32 BUN 20 mg/dL (7-17) H 05/05/19 08:32 Creatinine 0.9 mg/dL (0.7-1.2) 05/05/19 08:32 Estimated GFR 59 ml/min 05/05/19 08:32 BUN/Creatinine Ratio 22 % 05/05/19 08:32 Glucose 98 mg/dL (65-100) 05/05/19 08:32 POC Glucose 91 (70-105) 05/07/19 00:12 Calcium 8.8 mg/dL (8.4-10.2) 05/05/19 08:32 Total Bilirubin 0.60 mg/dL (0.1-1.2) 05/04/19 12:48 AST 21 units/L (5-40) 05/04/19 12:48 ALT 16 units/L (7-56) 05/04/19 12:48 Alkaline Phosphatase 123 units/L (35-129) 05/04/19 12:48 NT-Pro-B Natriuret Pep 276.5 pg/mL (0-900) 05/04/19 12:48 Total Protein 7.1 g/dL (6.3-8.2) 05/04/19 12:48 Albumin 4.5 g/dL (3.9-5) 05/04/19 12:48 Albumin/Globulin Ratio 1.7 % 05/04/19 12:48 Urine Color [place] (Yellow) 05/04/19 22:19 Urine Turbidity Slightly-cloudy (Clear) 05/04/19 22:19 Urine pH 5.0 (5.0-7.0) 05/04/19 22:19 Ur Specific [place] 1.021 (1.003-1.030) 05/04/19 22:19 Urine Protein <15 mg/dl mg/dL (Negative) 05/04/19 22:19 Urine Glucose (UA) Neg mg/dL (Negative) 05/04/19 22:19 Urine Ketones Tr mg/dL (Negative) 05/04/19 22:19 Urine Blood Neg (Negative) 05/04/19 22:19 Urine Nitrite Neg (Negative) 05/04/19 22:19 Urine Bilirubin Neg (Negative) 05/04/19 22:19 Urine Urobilinogen < 2.0 mg/dL (<2.0) 05/04/19 22:19 Ur Leukocyte Esterase Sm (Negative) 05/04/19 22:19 Urine WBC (Auto) 7.0 /HPF (0.0-6.0) H 05/04/19 22:19 Urine RBC (Auto) 7.0 /HPF (0.0-6.0) 05/04/19 22:19 U Epithel Cells (Auto) 6.0 /HPF (0-13.0) 05/04/19 22:19 Hyaline Casts 1 /LPF 05/04/19 22:19 Urine Mucus 2+ /HPF 05/04/19 22:19 Active Medications - Current Medications Current Medications: Generic Name Dose Route Start Last Admin Trade Name Freq PRN Reason Stop Dose Admin Acetaminophen 650 mg 05/04/19 16:03 Tylenol PO Q4H PRN Pain MILD(1-3)/Fever >100.5/WEI Albuterol 2.5 mg 05/04/19 16:03 Proventil IH Q4HRT PRN Shortness Of Breath Enoxaparin Sodium 70 mg 05/05/19 13:00 05/06/19 21:23 Enoxaparin SUB-Q 70 mg Q12HR ELIZ Administration Hydromorphone HCl 0.25 mg 05/04/19 16:03 Dilaudid IV Q3H PRN Pain, Moderate (4-6) Latanoprost 1 drops 05/04/19 22:00 05/06/19 21:45 Latanoprost 0.005% OU 1 drops QHS ELIZ Administration Losartan Potassium 100 mg 05/05/19 10:00 05/06/19 10:00 Cozaar PO Not Given QDAY ELIZ Ondansetron HCl 4 mg 05/04/19 16:03 Zofran IV Q8H PRN Nausea And Vomiting Polyethylene Glycol 17 gm 05/04/19 16:05 Miralax 3350 PO QDAY PRN Constipation Pravastatin Sodium 80 mg 05/04/19 22:00 05/06/19 21:24 Pravachol PO 80 mg QHS [facility] Administration Sodium Chloride 10 ml 05/04/19 22:00 05/06/19 21:54 Sodium Chloride Flush Syringe 10 Ml IV Not Given BID ELIZ Sodium Chloride 10 ml 05/04/19 16:03 Sodium Chloride Flush Syringe 10 Ml IV PRN PRN LINE FLUSH Timolol Maleate 1 drops 05/05/19 22:00 05/06/19 21:23 Timoptic OU 1 drops BID ELIZ Administration Tiotropium [place] 1 puff 05/05/19 09:00 05/07/19 08:13 Spiriva IH Not Given Q24HRT [facility]
--- NOTE | 2019-05-07 09:36 | Progress Note ---
Assessment and Plan Patient with extensive left lower extremity DVT and left leg swelling which is significantly improved. Patient currently wearing KANA hose. We'll obtain an arterial ultrasound to document that the patient has adequate arterial inflow. The patient will need to ambulate with physical therapy prior to discharge to ensure that she can do so without significant pain. She will need to go home on anticoagulation. She can follow up in our clinic in 2 weeks after discharge. Subjective Date of service: 05/07/19 Principal diagnosis: Left leg DVT Interval history: Patient with a history of extensive left leg DVT. Initially, the patient had a significantly swollen leg which is decreased in size somewhat. Pulses remain nonpalpable. Patient is not experiencing any significant pain. Objective - Constitutional Vitals: Vital Signs - 12hr 05/06/19 05/07/19 05/07/19 22:00 00:46 02:37 Temperature 98.2 F Pulse Rate 69 75 Respiratory 20 Rate Respiratory 20 Rate [LLL] Blood Pressure 111/48 O2 Sat by Pulse 92 Oximetry 05/07/19 07:23 Temperature 97.8 F Pulse Rate 84 Respiratory 18 Rate Respiratory Rate [LLL] Blood Pressure 129/55 O2 Sat by Pulse 92 Oximetry General appearance: Present: no acute distress - EENT Eyes: EOM intact ENT: hearing intact - Neck Neck: supple - Respiratory Respiratory effort: normal - Breasts Breasts: deferred Extremities: abnormal Extremity abnormal: edema, pulses diminished - Gastrointestinal General gastrointestinal: Present: deferred Rectal Exam: deferred - Genitourinary Female genitourinary: deferred - Psychiatric Psychiatric: appropriate mood/affect, cooperative - Labs CBC & Chem 7: 05/06/19 05:33 05/05/19 08:32 Medications & Allergies - Medications Allergies/Adverse Reactions: Allergies morphine Adverse Reaction (Verified 06/18/13 07:35) NAUSEA;HEADACHE;RASH Home Medications: Home Medications Medication Instructions Recorded Confirmed Last Taken Type Bimatoprost [Lumigan 0.01%] 1 drop OU QHS 06/16/13 05/05/19 06/23/14 History Losartan Potassium 100 mg PO DAILY 06/16/13 05/05/19 06/23/14 History Simvastatin 1 tab PO DAILY 06/16/13 05/05/19 06/22/14 History Timolol Maleate [Timolol Maleate 1 drop OU BID 06/16/13 05/05/19 06/23/14 History 0.25%] Polyethylene Glycol 3350 [Miralax 17 gm PO QDAY PRN #7 powd.pack 10/08/15 05/05/19 Unknown Rx 3350] levoFLOXacin [Levaquin TAB] 500 mg PO Q24HR #7 tablet 10/08/15 05/05/19 Unknown Rx metroNIDAZOLE [Flagyl TAB] 500 mg PO Q8HR #21 tablet 10/08/15 05/05/19 Unknown Rx Mirtazapine 15 mg PO Q48HR 05/05/19 05/05/19 Unknown History Active Medications: Generic Name Dose Route Start Last Admin Trade Name Freq PRN Reason Stop Dose Admin Acetaminophen 650 mg 05/04/19 16:03 Tylenol PO Q4H PRN Pain MILD(1-3)/Fever >100.5/WEI Albuterol 2.5 mg 05/04/19 16:03 Proventil IH Q4HRT PRN Shortness Of Breath Enoxaparin Sodium 70 mg 05/05/19 13:00 05/06/19 21:23 Enoxaparin SUB-Q 70 mg Q12HR ELIZ Administration Hydromorphone HCl 0.25 mg 05/04/19 16:03 Dilaudid IV Q3H PRN Pain, Moderate (4-6) Latanoprost 1 drops 05/04/19 22:00 05/06/19 21:45 Latanoprost 0.005% OU 1 drops QHS ELIZ Administration Losartan Potassium 100 mg 05/05/19 10:00 05/06/19 10:00 Cozaar PO Not Given QDAY ELIZ Ondansetron HCl 4 mg 05/04/19 16:03 Zofran IV Q8H PRN Nausea And Vomiting Polyethylene Glycol 17 gm 05/04/19 16:05 Miralax 3350 PO QDAY PRN Constipation Pravastatin Sodium 80 mg 05/04/19 22:00 05/06/19 21:24 Pravachol PO 80 mg QHS ELIZ Administration Sodium Chloride 10 ml 05/04/19 22:00 05/06/19 21:54 Sodium Chloride Flush Syringe 10 Ml IV Not Given BID ELIZ Sodium Chloride 10 ml 05/04/19 16:03 Sodium Chloride Flush Syringe 10 Ml IV PRN PRN LINE FLUSH Timolol Maleate 1 drops 05/05/19 22:00 05/06/19 21:23 Timoptic OU 1 drops BID ELIZ Administration Tiotropium [place] 1 puff 05/05/19 09:00 05/07/19 08:13 Spiriva IH Not Given Q24HRT ELIZ
[2019-05-07] MEDS: ENOXAPARIN 80 MG/0.8 ML INJ SUB-Q SCH (10:55)
[2019-05-07] MEDS: TIMOLOL 0.5% OPHTH SOLN 5 ML OU SCH (10:55)
[2019-05-07] MEDS: LOSARTAN 50 MG TAB PO SCH (10:56)
--- NOTE | 2019-05-07 14:31 | Discharge Summary ---
Providers - Providers Date of Admission: 05/05/19 13:00 Date of discharge: 05/07/19 Attending physician: WYATT ST 05/04/19 14:44 Consult to Physician [CONS] Routine Comment: seen patient in the ed/ torito Consulting Provider: APARNA MC Physician Instructions: Reason For Exam: LLE DVT 05/05/19 09:06 Physical Therapy Evaluation and Treat [CONS] Routine Comment: Reason For Exam: Weakness 05/06/19 12:10 Occupational Therapy Evaluate and Treat [CONS] Urgent Comment: Reason For Exam: General Weakness Primary care physician: AVERY YUN MD Hospitalization Condition: Stable Hospital course: Patient is a 89-year-old [place] woman with a history of hypertension who presents to [facility] ED with left leg swollen and pain. Patient underwent left lower extremity duplex and found to have extensive DVT in the left lower extremity. Patient initiated on heparin drip and Vascular/IR physician wanted to initiate anticoagulation inpatient due to the extensive nature of the DVT, in multiple large veins and possibly needing Clottriever thrombectomy. Patient denies cancer, and states she is up to date with screen, she denies prolonged travel/immobility. There is no individual/family of DVT/PE/bleeding/blood clotting disorders. * Left leg DVT FINDINGS: Left Common femoral vein: Occlusive thrombus. Left S uperficial femoral vein: Occlusive thrombus throughout all segments. Left Popliteal vein: Occlusive thrombus. Left Calf veins: Occlusive thrombus. Additional findings: There is also extensive thrombus throughout the great saphenous vein. IMPRESSION: 1. Positive for DVT in the left lower extremity as above. Findings were given to Caesar Ross nurse practitioner at 1344 by the test evaluator. * V/Q scan IMPRESSION: Low probability for PTE. Discharge Diagnoses: Extensive Acute LLE DVT: treat with sq lovenox and plan to discharge on Eliquis Hypertension: low salt diet Disposition: TO HOME OR SELFCARE Time spent for discharge: 32 minutes Core Measure Documentation - Palliative Care Palliative Care/ Comfort Measures: Not Applicable - Core Measures Any of the following diagnoses?: DVT/PE - VTE Discharge Requirements Deep Vein Thrombosis/Pulmonary Embolism Present on Admission: Yes Has pt received <5 days of overlap therapy or INR<2.0: No (d/c home on eliquis) Anticoagulant overlap therapy prescribed at discharge: No Contraindication No Overlap Therapy order at DC: Not Indicated Exam - Physical Exam Narrative exam: Gen: WDWN, NAD, Awake, Alert, Orientated x 3 HEENT: NCAT, EOMI, PERRL, OP Clear Neck: supple, no adenopathy, no thyromegaly, no JVD CVS/Heart: RRR, normal S1S2, pulses present bilaterally Chest/Lungs: CTA B, Symmetrical chest expansion, good air entry bilaterally GI/Abdomen: soft, NTND, good bowel sounds, no guarding or rebound /Bladder: no suprapubic tenderness, no CVA or paraspinal tenderness Extermity/Skin: 3+ left leg edema from foot to groin, no obvious rash, still rubor color no necrosis seen, KANA hoses on MSK: FROM x 4 Neuro: CN 2-12 grossly intact, no new focal deficits Psych: calm - Constitutional Vitals: Temp Pulse Resp BP Pulse Ox 97.8 F 84 18 129/55 92 05/07/19 07:23 05/07/19 10:00 05/07/19 07:23 05/07/19 07:23 05/07/19 07:23 Plan Activity: other (no strenous activity unless cleared by Dr. Mc or associate) Diet: low salt Durable Medical Equipment Needed Upon Discharge: other Additional Instructions: Thigh high KANA Hoses Follow up with: AVERY YUN MD [Primary Care Provider] - 7 Days APARNA MC MD [Staff Physician] - 7 Days Prescriptions: Apixaban [Eliquis] 1 dose PO BID 31 Days #74 tablet Polyethylene Glycol 3350 [Miralax 3350] 17 gm PO QDAY PRN #85 [email or web address] PRN Reason: Constipation
--- NOTE | 2019-05-07 14:38 | Vascular Lab Report ---
DUPLEX DOPPLER LOWER EXTREMITY ARTERIAL, LEFT INDICATION: thrombus. TECHNIQUE: Arterial duplex examination of the left lower extremity performed using B-mode, color flow and spectr al Doppler assessment. FINDINGS: LEFT: Common Femoral Artery: PSV 147 cm/sec. Biphasic waveform. Proximal SFA: PSV 107 cm/sec. Biphasic waveform. Mid SFA: PSV 134 cm/sec. Biphasic waveform. Distal SFA: PSV 147 cm/sec. Biphasic waveform. Popliteal artery: PSV 61 cm/sec. Biphasic waveform. Posterior tibial artery: PSV 79 cm/sec. Biphasic waveform. Dorsalis Pedis Artery: PSV 33 cm/sec. Biphasic waveform. IMPRESSION: 1. No significant lower extremity peripheral artery disease. Findings called to Dr. Rodas at 1:33 PM C entral time. Doppler Waveform: * Triphasic is normal. * Biphasic is abnormal if clear transition from triphasic signal along vascular tree. * Monophasic is abnormal. Signer Name: Johnny Berg MD Signed: 05/07/2019 2:34 PM Workstation Name: [id number]
[2019-05-07 16:09] VITALS: BP 121/52
[2019-05-07] MEDS ORDERED: APIXABAN 5 MG TAB PO SCH (22:00)
== END 2019-05-07 15:50 | disposition home or self-care (01) | DRG 301 ==
LOC: ED 11:14 → 2B-ACE 16:04 → OBSVTOIN 05-05 13:00
PROVIDERS: ADMIT Internal Medicine; ATTEND Internal Medicine
DX: I82.462 Acute embolism and thrombosis of left calf muscular vein (principal); I82.412 Acute embolism and thrombosis of left femoral vein; I82.432 Acute embolism and thrombosis of left popliteal vein; I10 Essential (primary) hypertension; J44.9 Chronic obstructive pulmonary disease, unspecified; N28.9 Disorder of kidney and ureter, unspecified; Z90.49 Acquired absence of other specified parts of digestive tract; Z88.6 Allergy status to analgesic agent; Z82.49 Family history of ischemic heart disease and other diseases of the circulatory system; Z90.710 Acquired absence of both cervix and uterus
CPT/HCPCS: 36415; 78582; 80048; 80053; 81001; 82962; 83880; 85014; 85018; 85025; 85049; 85520; 85610; 85730; 96365; G0378; A9270-GY; A9540; A9558; J1644; J1650